=== PATIENT | male | born 1950 | race Caucasian/White ===

== ENCOUNTER 2017-11-01 15:44 | Emergency (ER) | payer MEDICARE ==
[~2017-11-01] VITALS: Ht 167.6 cm; Wt 74.8 kg
[2017-11-01 15:45] VITALS: BP_SYST 150
[2017-11-01] MEDS ORDERED: AMPICILLIN SODIUM/SULBACTAM NA 3 GM in NS 100 ML IV ONE (16:15)
[2017-11-01] MEDS ORDERED: NACL 0.9% 1,000 ML IV ONE (16:15)
[2017-11-01] MEDS ORDERED: AMPICILLIN SODIUM/SULBACTAM NA 3 GM VIAL ONE (16:31)
[2017-11-01] MEDS ORDERED: ONDANSETRON HCL 4 MG/2 ML VIAL IVP ONE (17:30)
[2017-11-01] MEDS ORDERED: fentaNYL CITRATE/PF 100 MCG/2 ML AMP IVP ONE (17:30)
[2017-11-01 18:20] VITALS: BP_SYST 127
== END 2017-11-01 18:20 | disposition home or self-care (01) ==
LOC: SED 15:44
DX: K04.7 Periapical abscess without sinus (principal)
CPT/HCPCS: 96365; 96375; 99284; J0295; J2405; J3010; J7030